=== PATIENT | male | born 1965 | race Caucasian/White ===

== ENCOUNTER 2020-07-06 03:39 | Emergency (ER) | payer BC, SELFPAY ==
--- NOTE | ~2020-07-06 | CT_ITS ---
EXAMINATION: CT abdomen pelvis w con EXAM DATE: 07/06/2020 05:13 INDICATION: Low abdominal pain. TECHNIQUE: Spiral CT of the abdomen and pelvis was performed following intravenous injection of 100 m L Omnipaque 350. Axial, coronal and sagittal images were reviewed. The dose-length product (DLP) fo r this examination was 1178.93 mGy-cm. The exposure was tailored according to patient size (auto mA exposure control), and iterative reconstruction (ASIR) was used as additional dose reduction techniqu e. There is no prior study for comparison. FINDINGS: Large right liver lobe lesion with lobular contours, peripheral nodular enhancement, measur ing 9 cm and most likely a hemangioma. There are smaller lesions which are also likely hemangiomas. T here are scattered liver cysts. There is a left adrenal gland 8 mm adenoma. The liver, spleen, adren al glands and pancreas are otherwise unremarkable. Gallbladder is unremarkable. No biliary obstruct ion. Portal and splenic veins are patent. Kidneys enhance symmetrically. There is no hydronephrosi s. There is mild prostatomegaly. The bladder is unremarkable. There is no retroperitoneal or pelvi c lymphadenopathy. There is moderate scattered arteriosclerotic disease. The appendix is normal. The stomach and small bowel are unremarkable. Mild to moderate colonic dive rticulosis with mild adjacent inflammation at the descending/sigmoid colonic junction, acute uncompli cated diverticulitis. No free intraperitoneal gas. The heart is normal in size. There are no per icardial or pleural effusions. The lung bases are unremarkable. There are no osteoblastic or osteol ytic lesions identified. Osseous changes to the right superior ramus appearance most consistent with early Paget's disease. IMPRESSION: 1. Acute uncomplicated descending/sigmoid colonic diverticulitis. 2. Liver hemangiomata and cysts. 3. Right superior ramus Paget's. 4. Left adrenal adenoma. Reviewed, dictated and finalized at location A.
[2020-07-06 03:45] VITALS: BP 168/105; PULSE 81; RESP 16; TEMP 37.1; O2SAT 100
--- NOTE | 2020-07-06 04:08 | ECG_ITS ---
Measurements Intervals [place] Rate: 77 P: 42 TX: 155 QRS: 12 QRSD: 91 T: 4 QT: 360 QTc: 408 Interpretive Statements SINUS RHYTHM BORDERLINE T WAVE ABNORMALITY- INFERIOR LEADS BASELINE ARTIFACT- I, II, AVR, AVL BORDERLINE ECG Electronically Signed On 07-06-2020 8:28:27 CDT by Daniel Fermin D.O.
--- NOTE | 2020-07-06 04:19 | ED.ABDPAIN ---
HPI - Abdominal Pain General Chief Complaint: Abdominal Pain Stated Complaint: upper abd pain, back pain Time Seen by Provider: 07/06/20 03:47 Source: patient Mode of arrival: ambulatory Limitations: no limitations History of Present Illness HPI narrative: This patient is a 55 year old male who presents for evaluation of epigastric abdominal pain. He states he developed left lower abdominal pain 4 days ago. He reports this pain waxes and wanes. He states it was due to gas since it started after eating [place]. Later he developed a low grade temperature of 99.7 and epigastic pain. He reports this epigastric pain has been constant for 3 days but it is worse with eating and laying down. This pain also radiates to his mid back. He has some nausea but denies vomiting. He has not a fever again. He denies cough or sob. This pain does not appear to be worse with exertion. MD elicited complaint: abdominal pain Related Data Allergies Allergy/AdvReac Type Severity Reaction Status Date / Time No Known Allergies Allergy Verified 07/06/20 04:44 Review of Systems Review of Systems: All systems reviewed & are unremarkable except as noted in HPI and below Constitutional: Constitutional: Reports fever(s) Respiratory: Respiratory: Denies cough and Denies dyspnea Gastrointestinal: Gastrointestinal: Reports abdominal pain, Denies constipation, Denies diarrhea, Reports nausea and Denies vomiting Genitourinary: Genitourinary: Denies hematuria and Denies urinary frequency Musculoskeletal: Musculoskeletal: Reports back pain PMFSH Past Medical History Medical History (Updated 07/06/20 @ 06:23 by Paula Lofton MD) Patient denies medical problems Family History Family History (Updated 04/30/16 @ 23:21 by DOCTOR UNKNOWN) Mother Family history of osteoporosis Father Hypertension Family history of Parkinson's disease Acute myocardial infarction Sibling Patient's sister is in good health Patient's brother is in good health Social History Social History Smoking status: Never smoker Alcohol intake: never Gender identity (if verbalized by the patient): Male Exam Narrative: Exam Narrative: GENERAL: Well-appearing, well-nourished, and in no acute distress. HEAD: Normocephalic, atraumatic EYES: PERRLA and EOMI, conjunctiva clear without discharge THROAT:Mucous membranes moist, Oropharynx normal without erythema, exudate, peritonsillar swelling or fluctuance NECK: Supple, without lymphadenopathy or mass RESPIRATORY: No respiratory distress, Airway patent, Respirations non-labored, Clear to auscultation without rales, rhonchi or wheeze HEART: Regular rate and rhythm. No murmur heard. Normal peripheral pulses. ABDOMEN: Soft, nontender, nondistended, normal active bowel sounds. No masses. No rebound or guarding, No organomegaly. EXTREMITIES: No edema, normal strength with full range of motion. SKIN: Warm, dry, normal color without rash NEURO: Alert and oriented x3. CN 2-12 grossly intact. No focal deficits. PSYCH: Normal mood and affect. Course Reevaluation(s) Reevaluation #1: I have discussed with patient and discharge plan and diagnosis. HE was also made aware of hemangioma and need to follow up Date: 07/06/20 Time: 06:21 Vital Signs Vital signs: Vital Signs Temperature 98.7 F 07/06/20 03:45 Pulse Rate 81 07/06/20 03:45 Respiratory Rate 16 07/06/20 03:45 Blood Pressure 168/105 H 07/06/20 03:45 Pulse Oximetry 100 07/06/20 03:45 Temperature 98.7 F 07/06/20 03:45 Pulse Rate 77 07/06/20 05:40 Respiratory Rate 16 07/06/20 05:40 Blood Pressure 144/87 H 07/06/20 05:40 Pulse Oximetry 99 07/06/20 05:40 MDM - Abdominal Pain Lab Data Attestation: I reviewed the patient's lab results. Result diagrams: 07/06/20 04:10 07/06/20 04:10 Labs: Lab Results 07/06/20 07/06/20 07/06/20 Range/Units 04:10 04:10 04:10 WBC 10.5 H
[2020-07-06 04:20] LABS: Basophils Absolute Auto 0.1 K/mm3 (0.0-0.1); Basophils Percent Auto 0.6 % (0.2-1.2); Eosinophils Absolute Auto 0.1 K/mm3 (0-0.3); Eosinophils Percent Auto 1.2 % (0-4.4); Hematocrit 39.8 % (42.0-52.0); Hemoglobin 13.7 g/dL (14.0-18.0); Immature Granulocyte Absolute 0.05 K/mm3 (0.00-0.031); Immature Granulocyte Percent A 0.5 % (0-0.5); Lymphocytes Absolute Auto 2.72 K/mm3 (0.9-3.2); Lymphocytes Percent Auto 25.9 % (18.3-44.2); Mean Corpuscular HGB Conc 34.4 g/dl (32-36); Mean Corpuscular Hemoglobin 30.7 pg (26-34); Mean Corpuscular Volume 89.2 fl (80-100); Monocytes Absolute Auto 0.8 K/mm3 (0.1-0.6); Monocytes Percent Auto 7.9 % (2.6-8.5); Neutrophils Absolute Auto 6.7 K/mm3 (1.3-6.7); Neutrophils Percent Auto 63.9 % (45.5-73.1); Platelet Count Result 291 k/mm3 (150-375); Red Blood Count 4.46 M/mm3 (4.6-6.20); Red Cell Distribution Width 12.7 % (11.5-14.5); White Blood Count 10.5 K/mm3 (4.5-10.0)
[2020-07-06 04:29] LABS: Alanine Aminotransferase 25 U/L (4-50); Albumin Level 4.5 g/dL (3.5-5.1); Alkaline Phosphatase 60 U/L (38-126); Anion Gap 10 mmol/L (8-16); Aspartate Amino Transferase 24 U/L (17-59); Bilirubin,Total 0.6 mg/dL (0.2-1.3); Blood Urea Nitrogen 14 mg/dL (9-20); Carbon Dioxide 29 mmol/L (22-30); Chloride 102 mmol/L (98-107); Estimated CRCL calculation 91 ml/min; Estimated Glomerular Filt Rate > 60; Glucose 109 mg/dL (75-110); Lipase 34 U/L (23-300); Potassium 3.7 mmol/L (3.4-5.0); Sodium 141 mmol/L (137-145)
[2020-07-06 04:39] LABS: Add Urine Microscopic? YES; Appearance Urine Clear (Clear); Bacteria Urine Trace /hpf; Bilirubin Urine Negative (Negative); Blood Urine Negative (Negative); Color Urine Yellow (Yellow); Glucose Urine UA Negative (Negative); Ketones Urine 1+ mg/dL (Negative); Leukocyte Esterase Ur Negative LEU/UL (Negative); Mucus Urine Moderate /lpf; Nitrate Urine Negative (Negative); Protein Urine Negative (Negative); RBC Urine 0-2 /hpf (0-2); Specific Grav Ur 1.017 (1.001-1.035); Urobilinogen Urine Negative mg/dL (<2.0); WBC Urine 0-3 /hpf
[2020-07-06 04:40] LABS: Troponin I < 0.012 ng/mL (0.000-0.034)
[2020-07-06] MEDS: MORPHINE SULFATE (*CRX) 4 MG/ML INJ IV PUSH (04:47)
[2020-07-06] MEDS: ONDANSETRON INJ 4 MG/2 ML VIAL IV PUSH (04:47)
[2020-07-06 05:40] VITALS: BP 144/87; PULSE 77; RESP 16; O2SAT 99
[2020-07-06] MEDS: DICYCLOMINE HCL INJ 20 MG/2 ML VIAL IM (05:46)
[2020-07-06] MEDS: BELLADONNA ALK/PHENOB ELIX 10 ML, MAG HYDROX/ALUMINUM HYD/SIMETH 30 ML, LIDOCAINE HCL 2... PO (06:26)
== END 2020-07-06 07:10 | disposition home or self-care (01) ==
PROVIDERS: Emergency Provider General Practice; PCP Internal Medicine
DX: K57.32 Diverticulitis of large intestine without perforation or abscess without bleeding (principal); R94.31 Abnormal electrocardiogram [ECG] [EKG]
CPT/HCPCS: 36415; 74177; 80053; 81001; 83690; 84484; 85025; 93005; 96372; 96374; 96375; 99284; J0500; J2270; J2405; Q9967

== ENCOUNTER 2020-10-11 02:10 | Outpatient (CLI) | payer BC, SELFPAY ==
[2020-10-11 19:31] LABS: SARS-CoV-2 RNA PCR Negative
== END 2020-10-11 02:11 | disposition home or self-care (01) ==
LOC: ANHCOVIDDT 02:10
PROVIDERS: PCP Internal Medicine; Visit Provider Internal Medicine Gastroenterology
DX: Z01.812 Encounter for preprocedural laboratory examination (principal); Z20.822 Contact with and (suspected) exposure to COVID-19
CPT/HCPCS: C9803; U0003

== ENCOUNTER 2020-10-15 01:06 | Day surgery (SDC) | payer BC, SELFPAY ==
[2020-10-07 14:44] VITALS: BMI 31.6
[2020-10-15 06:21] VITALS: BP 138/96; PULSE 90; RESP 18; TEMP 36.6; O2SAT 96; BMI 31.7
[2020-10-15] MEDS: LACTATED RINGERS 1,000 ML 150 ML IV CONT (06:32)
--- NOTE | 2020-10-15 07:22 | WPDANESEPPF ---
Anes - Initial Pre Proc Eval Procedure: Operation Date: 10/15/20 07:30 Proposed Procedures p Screening Colonoscopy - Fidel Orta MD Date/Time: 10/15/20 07:22 Surgeon: Fidel Orta MD Pre Op Diagnosis: Neoplasm Screening Patient Data Age: 55 Gender: M Height: 5 ft 9 in Weight: 97.5 kg Last Vital Signs Temp 97.8 F 10/15/20 06:21 Pulse 90 10/15/20 06:21 Resp 18 10/15/20 06:21 BP 138/96 H 10/15/20 06:21 Pulse Ox 96 10/15/20 06:21 Allergies Allergy/AdvReac Type Severity Reaction Status Date / Time No Known Allergies Allergy Verified 10/07/20 14:47 Home Medications Medication Instructions Recorded Confirmed Type sodium,potassium,mag sulfates 17.5 See Rx Instructions PO .COMPLEX 10/06/20 10/07/20 Rx gram-3.13 gram-1.6 gram oral soln #354 ml Lactobac 40-Bifido 3-S.thermop 1 cap PO DAILY 10/07/20 10/07/20 History [Probiotic] ascorbic acid (vitamin C) [Vitamin 500 mg PO DAILY 10/07/20 10/07/20 History C] cholecalciferol (vitamin D3) 125 mcg PO DAILY 10/07/20 10/07/20 History zinc 100 mg PO DAILY 10/07/20 10/07/20 History Patient hx anesthesia problems: none Family hx anesthesia problems: none PMFSH Past Medical History Medical History (Updated 07/09/20 @ 10:07 by Husam Taylor DO) Patient denies medical problems Family History Family History (Updated 04/30/16 @ 23:21 by DOCTOR UNKNOWN) Mother Family history of osteoporosis Father Hypertension Family history of Parkinson's disease Acute myocardial infarction Sibling Patient's sister is in good health Patient's brother is in good health Social History Social History Smoking packs per day: 1 Smoking cigarettes per day: 20.0 Years smoked: 5 Smoking pack-years: 5.00 Smoking status: Former smoker Tobacco type: cigarettes Alcohol intake: current Drinks per week: 2 Alcohol use details: 2 beers a week Living arrangements: with family Gender identity (if verbalized by the patient): Male Spiritual care concerns: No Anes - Eval Final PreProcedure Day of Procedure 10/15/20 07:22 Patient weight: overweight Heart: regular rate and rhythm Lungs: clear to auscultation Airway: Mallampati scale class II Neurological: alert and oriented Last oral intake: >/= 8 hours ASA classification: II Emergent: no Anesthetic plan: proceed Anesthesia type and monitoring: general GIVS and standard monitoring Informed Consent: The patient's anesthetic plan and its attendant risks and benefits were discussed with the patient/family/POA. Questions were solicited and answers provided to the satisfaction of the patient/family/POA.
--- NOTE | 2020-10-15 07:36 | PM.HPGS ---
History of Present Illness History of Present Illness Consent: Risks, benefits, and alternatives have been discussed and questions answered. Patient agrees to proceed with procedure. Chief complaint: Neoplasm Screening Narrative: Jb Li is a 55 year old male here for first colonoscopy. Review of Systems Constitutional: Constitutional: Denies headache(s) and Denies weakness Eyes: Eyes: Denies blurry vision ENT: Reports Normal hearing present, Denies headache(s) and Denies neck pain Cardiovascular: Cardiovascular: Denies chest pain and Denies dyspnea Respiratory: Respiratory: Denies dyspnea Gastrointestinal: Gastrointestinal: Reports no additional gastrointestinal complaints Genitourinary: Genitourinary: Denies dysuria Musculoskeletal: Musculoskeletal: Denies neck pain Integumentary/Breasts: Skin/Breast: Denies dry skin Neurologic: Reports Normal hearing present, Denies headache(s) and Denies weakness Psychiatric: Psychiatric: Denies anxiety Endocrine: Endocrine: Denies change in body appearance Hematologic/Lymphatic: Hematologic/Lymphatic: Denies easy bleeding Allergic/Immunologic: Allergic/Immunologic: Denies urticaria PMFSH Past Medical History Medical History (Updated 10/15/20 @ 07:36 by Fidel Orta MD) Colon cancer screening Patient denies medical problems Family History Family History (Updated 04/30/16 @ 23:21 by DOCTOR UNKNOWN) Mother Family history of osteoporosis Father Hypertension Family history of Parkinson's disease Acute myocardial infarction Sibling Patient's sister is in good health Patient's brother is in good health Social History Social History Smoking packs per day: 1 Smoking cigarettes per day: 20.0 Years smoked: 5 Smoking pack-years: 5.00 Smoking status: Former smoker Tobacco type: cigarettes Alcohol intake: current Drinks per week: 2 Alcohol use details: 2 beers a week Living arrangements: with family Gender identity (if verbalized by the patient): Male Spiritual care concerns: No Meds Home Medications and Allergies Home Medications Medication Instructions Recorded Confirmed Type sodium,potassium,mag sulfates 17.5 See Rx Instructions PO .COMPLEX 10/06/20 10/07/20 Rx gram-3.13 gram-1.6 gram oral soln #354 ml Lactobac 40-Bifido 3-S.thermop 1 cap PO DAILY 10/07/20 10/07/20 History [Probiotic] ascorbic acid (vitamin C) [Vitamin 500 mg PO DAILY 10/07/20 10/07/20 History C] cholecalciferol (vitamin D3) 125 mcg PO DAILY 10/07/20 10/07/20 History zinc 100 mg PO DAILY 10/07/20 10/07/20 History Allergies Allergy/AdvReac Type Severity Reaction Status Date / Time No Known Allergies Allergy Verified 10/07/20 14:47 Vital Signs Vital Signs - 24 hr 10/15/20 06:21 Temperature 97.8 F Pulse Rate 90 Respiratory Rate 18 Blood Pressure 138/96 H Pulse Oximetry 96 Exam Const: General: comfortable and no acute distress HENMT: General nose exam: Normal nares present Eyes: General: appearance normal, both eyes and all related structures Neck: Neck: no JVD Resp: Auscultation: clear to auscultation bilaterally Cardio: Rate: regular rate Rhythm: regular rhythm GI: Inspection: non-distended GI Palp: Yes Soft to palpation Skin: General skin exam: normal color Neuro: General: gait normal Speech: normal speech Extrem: General: normal to inspection Psych: Mental Status: mental status grossly normal Assessment and Plan Assessment and plan (1) Colon cancer screening: Code(s): Z12.11 - Encounter for screening for malignant neoplasm of colon Status: Acute Assessment and Plan: will proceed with colonoscopy
[2020-10-15 07:53] VITALS: BP 97/66; PULSE 78; RESP 14; O2SAT 94
[2020-10-15 08:03] VITALS: BP 104/68; PULSE 71; RESP 15; O2SAT 95
[2020-10-15 08:13] VITALS: BP 116/81; PULSE 75; RESP 15; O2SAT 98
== END 2020-10-15 08:23 | disposition home or self-care (01) ==
PROVIDERS: PCP Internal Medicine; Visit Provider Internal Medicine Gastroenterology
PROC: 0DJD8ZZ Inspection of Lower Intestinal Tract, Via Natural or Artificial Opening Endoscopic (ICD-10-PCS; CPT 45378; principal; 2020-10-15 07:30)
DX: Z12.11 Encounter for screening for malignant neoplasm of colon (principal); K57.30 Diverticulosis of large intestine without perforation or abscess without bleeding; K64.8 Other hemorrhoids; Z87.891 Personal history of nicotine dependence
CPT/HCPCS: 45378; J2704; J7120

== ENCOUNTER → 2021-09-16 02:48 | Outpatient (CLI) | payer BC, SELFPAY ==
[2021-09-16 11:59] LABS: Influenza Control Positive
[2021-09-16 18:29] LABS: SARS-CoV-2 RNA PCR Positive
== END ==
PROVIDERS: PCP Internal Medicine; Visit Provider Internal Medicine
DX: R68.89 Other general symptoms and signs (principal); U07.1 COVID-19
CPT/HCPCS: 87804; C9803; U0003; U0005

== ENCOUNTER 2021-09-18 10:26 | Outpatient (RCR) | payer BC, SELFPAY ==
[2021-09-18] MEDS: ACETAMINOPHEN 325 MG TABLET 650 MG PO (15:39)
[2021-09-18 15:40] VITALS: BP 143/94; PULSE 86; RESP 20; TEMP 36.4; O2SAT 96
[2021-09-18] MEDS: diphenhydrAMINE HCl CAP 25 MG CAPSULE PO (15:40)
[2021-09-18] MEDS: FAMOTIDINE 20 MG TABLET PO (15:40)
[2021-09-18 16:39] VITALS: BP 127/78
--- NOTE | 2021-09-21 11:50 | PC.NURSE ---
MR Guillermo called and stated he has been doing well all weekend and feels better. He has no questions at this time.
== END 2021-09-18 17:00 ==
LOC: AMCINF 10:26
PROVIDERS: PCP Internal Medicine; Visit Provider Internal Medicine Hematology & Oncology
DX: U07.1 COVID-19 (principal)
CPT/HCPCS: A9270; M0243; Q0244

== ENCOUNTER → 2022-07-15 11:39 | Outpatient (CLI) | payer BC, SELFPAY ==
--- NOTE | ~2022-07-15 | XR_ITS ---
EXAMINATION: XR lumbar spine 2-3V DATE: 07/15/2022 11:54 INDICATION: Low back pain TECHNIQUE: Anteroposterior and lateral views of the lumbar spine, and cone-down lateral view of the l umbosacral junction were obtained. COMPARISON: CT, 07/06/2020 FINDINGS: Bone alignment is normal. There is no fracture. There is mild loss of intervertebral disc s pace height throughout the lumbar spine. There is moderate to severe facet joint osteoarthritis of th e mid and lower lumbar spine. Small degenerative osteophytes project from the anterior endplates of m ultiple vertebral bodies. IMPRESSION: 1. Mild lumbar spondylosis without acute findings or significant interval change. Reviewed, dictated and finalized at location F. IMPRESSION: 1. Mild lumbar spondylosis without acute findings or significant interval calix eRandee
== END ==
PROVIDERS: PCP Internal Medicine; Visit Provider Nurse Practitioner
DX: M47.896 Other spondylosis, lumbar region (principal)
CPT/HCPCS: 72100

== ENCOUNTER 2022-09-08 08:43 | Outpatient (CLI) | payer BC, SELFPAY ==
--- NOTE | 2022-09-18 19:22 | WPDHOMESLEEP ---
Sleep Study - Home Unattended Date of Study: 09/08/22 Ordering Provider: Husam Taylor DO Interpreting Provider: Chandrika Rios DO Home Sleep Study Type: Watch PAT Height: 1.75 m Weight: 97.522 kg Body Mass Index: 31.7 Neck Circumference (inches): 16 [place]: 6 Reason for Sleep Study Snoring Sleep History The patient is a 57-year-old male with hypertension GERD and history of tobacco use that a sleep study for evaluation of sleep apnea the patient denies awakening from sleep short of breath. He rarely awakens at night with heartburn, belching or cough. He frequently snores loud that others complain. He denies having trouble sleeping when he has a cold. He denies waking up gasping for air throughout night. He occasionally has breathing problems at night observed by himself or others. He denies sweating excessively at night. He denies having heart palpitations or irregular heartbeats during the night. He denies falling asleep during the day driving. He denies sleep paralysis, cataplexy and hypnagogic / hypnopompic hallucinations. He denies having trouble at school or work due to sleepiness. He denies feeling afraid of going to sleep. He denies having nightmares but occasionally remembers his dreams. He occasionally has thoughts racing through his mind. He denies feeling sad or depressed. He occasionally has anxiety. He rarely has muscular tension. He rarely notices parts of his body jerk. He denies kicking during the night. He denies having crawling and aching feelings in his legs as well as leg pain during the night. He denies grinding his teeth during sleep awakening with morning jaw pain. He is rarely bothered by pain during the day and never awakened by pain during the night. He occasionally wakes up feeling stiff in the morning. He rarely wakes up with sore or achy muscles. He rarely wakes up with pain in the neck, spine or other joints. He goes to bed at midnight on weekdays and 1:00 a.m. on the weekends. It takes him 5 minutes to fall asleep. He wakes up 2-3 times throughout the night to urinate. He is able to fall back asleep within 5 minutes. He typically gets 8 hours of sleep per night. He currently lives with his . He does not consume any caffeinated beverages within 2 hours of bedtime. He does not engage in physical exercise before bedtime. He denies reading and watching television before falling asleep. He denies taking naps in the afternoon or the evening. He drinks a pot of coffee per day. He quit smoking over 20 years ago. He drinks a couple beers per week. He denies recreational drug use. [facility] Past Medical History Medical History Colon cancer screening Patient denies medical problems Family History Family History Mother Family history of osteoporosis Father Hypertension Family history of Parkinson's disease Acute myocardial infarction Sibling Patient's sister is in good health Patient's brother is in good health Social History Social History Smoking packs per day: 0.5 Smoking cigarettes per day: 10.0 Years smoked: 5 Smoking pack-years: 2.50 Smoking status: Former smoker Tobacco type: cigarettes Second hand tobacco smoke exposure: No Smoking end date: 09/27/91 Alcohol intake: current Drinks per week: 2 Alcohol use details: 2 beers a week Substance use: never Gender identity (if verbalized by the patient): Male Spiritual care concerns: No Medications Home Medications Medication Instructions Recorded Confirmed Type amlodipine 5 mg tablet 5 mg PO DAILY #30 tabs 06/10/22 07/02/22 Rx Sleep Procedure The sleep study was completed using [employer] a technically adequate device with seven channels: peripheral arterial tone, actigraphy, body position, snore, res
[2022-09-18 19:24] VITALS: BMI 31.7
== END 2022-09-09 13:09 | disposition home or self-care (01) ==
LOC: ANHCSM 08:46
PROVIDERS: PCP Internal Medicine; Visit Provider Internal Medicine
DX: G47.10 Hypersomnia, unspecified (principal); G47.33 Obstructive sleep apnea (adult) (pediatric)
CPT/HCPCS: 95800

== ENCOUNTER 2023-04-26 11:45 | Outpatient (NON) | payer BC, SELFPAY | END 2023-04-26 11:46 | disposition home or self-care (01) | PROVIDERS: PCP Nurse Practitioner; Visit Provider Nurse Practitioner | DX: D49.2 Neoplasm of unspecified behavior of bone, soft tissue, and skin (principal) | CPT/HCPCS: 88305 ==